=== PATIENT | male | born 1990 | race Two or more races ===

== ENCOUNTER 2023-09-12 10:29 | Emergency (ER) | payer OTHER ==
[~2023-09-12] VITALS: Ht 180.3 cm; Wt 63.5 kg
[2023-09-12] MEDS ORDERED: DUI500 PO (13:32)
== END 2023-09-12 13:47 | disposition home or self-care (01) ==
LOC: ER 10:29
DX: S91.311A Laceration without foreign body, right foot, initial encounter (principal); W45.8XXA Other foreign body or object entering through skin, initial encounter; Y93.18 Activity, surfing, windsurfing and boogie boarding; Y92.832 Beach as the place of occurrence of the external cause; Y99.9 Unspecified external cause status

== ENCOUNTER 2023-09-19 11:50 | Emergency (ER) | payer OTHER ==
[~2023-09-19] VITALS: Ht 180.3 cm; Wt 63.5 kg
[~2023-09-19 11:50] MED LIST: DUI500 PO
== END 2023-09-19 16:54 | disposition home or self-care (01) ==
LOC: ER 11:50
DX: Z48.02 Encounter for removal of sutures (principal)

== ENCOUNTER 2023-09-26 08:16 | Emergency (ER) | payer OTHER ==
[~2023-09-26] VITALS: Ht 180.3 cm; Wt 63.5 kg
== END 2023-09-26 13:35 | disposition home or self-care (01) ==
LOC: ER 08:16
DX: Z48.02 Encounter for removal of sutures (principal)